=== PATIENT | male | born 1980 | race Caucasian/White ===

== ENCOUNTER 2020-11-11 07:27 | Emergency (ER) | payer OTHER ==
[~2020-11-11 07:27] MED LIST: NORCO 5-325 TA1 EACH PO
[2020-11-11 08:47] LABS: BASOPHIL 0.5 % (0-2); EOSINOPHIL 2.3 % (0-5); HCT 48.9 % (42.0-52.0); HGB 16.6 g/dl (13.2-18.0); LYMPHOCYTE 22.2 % (15-48); MCH 30.8 pg (25.0-31.0); MCHC 33.9 g/dL (32.0-36.0); MCV 90.7 fL (78.0-100.0); MONOCYTE 8.4 % (0-12); MPV 10.2 fL (6.0-9.5); NEUTROPHIL 66.3 % (41-80); NRBC 0; PLT 303 K/uL (150-400); RBC 5.39 M/uL (4.70-6.00); RDW 11.8 % (11.5-14.0)
[2020-11-11] MEDS ORDERED: NORCO 5-325 TA1 EACH PO (09:19)
[2020-11-11] MEDS ORDERED: NAPROXEN500 MG PO (09:19)
[2020-11-11 09:32] LABS: CREATININE 0.82 mg/dL (0.67-1.17); POTASSIUM 4.2 mmol/L (3.5-5.1)
[2020-11-11 09:33] LABS: ALBUMIN 3.8 g/dL (3.4-5.0); BILIRUBIN - TOTAL 0.3 mg/dL (0.2-1.0); GLOBULIN (CALCULATION) 3.4 g/dL; TOTAL PROTEIN 7.2 g/dL (6.4-8.2)
[2020-11-11] MEDS ORDERED: FIORICET1 EACH PO (11:29)
== END 2020-11-11 12:05 | disposition home or self-care (01) ==
LOC: FER 07:27
PROVIDERS: Emergency Medicine
DX: R51.9 Headache, unspecified (principal); R20.2 Paresthesia of skin; E86.0 Dehydration; E87.0 Hyperosmolality and hypernatremia; F17.210 Nicotine dependence, cigarettes, uncomplicated
CPT/HCPCS: 36415; 70450; 72125; 80053; 83036; 84145; 85025; J1170; J1200; J1885; J2765; J7030

== ENCOUNTER 2021-05-31 06:41 | Emergency (ER) | payer OTHER ==
[~2021-05-31 06:41] MED LIST changes: +FIORICET1 EACH PO; +NAPROXEN500 MG PO
[2021-05-31 07:58] LABS: BASOPHIL 0.2 % (0-2); EOSINOPHIL 0.5 % (0-5); HCT 48.6 % (42.0-52.0); HGB 16.9 g/dl (13.2-18.0); LYMPHOCYTE 10.1 % (15-48); MCH 31.3 pg (25.0-31.0); MCHC 34.8 g/dL (32.0-36.0); MONOCYTE 7.9 % (0-12); MPV 10.5 fL (6.0-9.5); NEUTROPHIL 80.8 % (41-80); NRBC 0; PLT 283 K/uL (150-400); RDW 11.9 % (11.5-14.0); WBC 12.9 K/uL (4.0-10.5)
[2021-05-31] MEDS ORDERED: SUMATRIPTAN SU100 MG PO (08:04)
[2021-05-31] MEDS ORDERED: NURTEC ODT75 MG SL (08:05)
[2021-05-31 08:14] LABS: ALBUMIN 3.8 g/dL (3.4-5.0); BILIRUBIN - TOTAL 0.8 mg/dL (0.2-1.0); BUN/CREAT RATIO (CALC) 11.8 RATIO; CREATININE 1.02 mg/dL (0.67-1.17); GLOBULIN (CALCULATION) 3.6 g/dL; POTASSIUM 3.9 mmol/L (3.5-5.1); TOTAL PROTEIN 7.4 g/dL (6.4-8.2)
[2021-05-31 09:58] LABS: BILIRUBIN 1+ mg/dL (NEGATIVE); BLOOD 3+ Ery/uL (NEGATIVE); GLUCOSE (U) NORMAL (NORMAL); LEUKOCYTES NEGATIVE Leu/uL (NEGATIVE); NITRITE NEGATIVE (NEGATIVE); PROTEIN 1+ mg/dL (NEGATIVE); SPECIFIC GRAVITY >=1.030 (1.001-1.030)
[2021-05-31 10:10] LABS: CLARITY HAZY (CLEAR); COLOR AMBER (YELLOW)
[2021-05-31 10:15] LABS: BACTERIA TRACE; MUCOUS TRACE; URINARY RBC TNTC
[2021-05-31] MEDS ORDERED: KETOROLAC TROME10 MG PO (11:18)
[2021-05-31] MEDS ORDERED: NORCO 5-325 TA1 EACH PO (11:18)
[2021-05-31] MEDS ORDERED: FLOMAX0.4 MG PO (11:18)
[2021-05-31] MEDS ORDERED: CIPRO500 MG PO (11:18)
== END 2021-05-31 12:05 | disposition home or self-care (01) ==
LOC: FER 06:41
PROVIDERS: Emergency Medicine
DX: N13.2 Hydronephrosis with renal and ureteral calculous obstruction (principal); F17.210 Nicotine dependence, cigarettes, uncomplicated
CPT/HCPCS: 36415; 80053; 81001; 82150; 83690; 85025; 87088; 96372; J1885; J2405